=== PATIENT | male | born 1960 | race Caucasian/White ===

== ENCOUNTER 2018-08-29 07:15 | Day surgery (SDC) | payer BC ==
[~2018-08-29] VITALS: Ht 177.8 cm; Wt 98.0 kg
[~2018-08-29 07:15] MED LIST: BUPIVAC MPF-EPI 0.5%-1:200000 30 ML VIAL. ONE; HYDROmorphone 2 MG/ML VIAL IV PRN; IV RINGERS,LACTATED 1000ML 1,000 ML IV SCH; LIDOCAINE 1% PF 2 ML VIAL. ID PRN; ONDANSETRON PF 4 MG/2 ML VIAL. IV PRN; OXYC1TAB15 PO; PROCHLORPERAZINE 10 MG/2 ML VIAL. IV PRN; SIMV40TA3 PO; fentaNYL PF VIAL 100 MCG/2 ML VIAL IV PRN
[2018-08-29] MEDS ORDERED: ceFAZolin 2GM PREMIX 2 GM/50 ML BAG IV ONE (09:00)
[2018-08-29] MEDS ORDERED: MIDAZOLAM HCL/PF 2 MG/2 ML VIAL. ONE (09:02)
[2018-08-29] MEDS ORDERED: ROCURONIUM 50 MG/5 ML VIAL. ONE ×2 (09:02→10:27)
[2018-08-29] MEDS ORDERED: DEXAMETHASONE SOD PHOS 20 MG/5 ML VIAL. ONE (09:02)
[2018-08-29] MEDS ORDERED: PROPOFOL 20 ML IV ONE (09:02)
[2018-08-29] MEDS ORDERED: fentaNYL PF VIAL 100 MCG/2 ML VIAL ONE ×2 (09:02→10:27)
[2018-08-29] MEDS ORDERED: LIDOCAINE 2% PF Vial for OR 5 ML VIAL. ONE (09:02)
[2018-08-29] MEDS ORDERED: ONDANSETRON PF 4 MG/2 ML VIAL. ONE (09:02)
[2018-08-29] MEDS ORDERED: GLYCOPYRROLATE 1 MG/5 ML VIAL. ONE (10:15)
[2018-08-29] MEDS ORDERED: NEOSTIGMINE METHYLSULFATE 5 MG/5 ML SYRINGE. ONE (10:15)
[2018-08-29] MEDS ORDERED: SEVOFLURANE 61 TO 120 MINUTES. IH ONE (10:35)
--- NOTE | 2018-08-29 10:39 | PDOC4 ---
Operative Note Operative Note Date: 08/29/2018 Preoperative diagnosis: Recurrent left inguinal hernia and right inguinal hernia Postoperative diagnosis: Same Procedure: Robotic-assisted laparoscopic bilateral inguinal hernia repair with mesh Surgeon: Art Specimen: None Dictation: Patient is a 58-year-old male who had a left inguinal hernia repair 3 -1/2 years ago comes back with complaints of a left inguinal pain underwent a CT scan of the abdomen and pelvis which showed a recurrence of the left inguinal hernia and a new right inguinal hernia. The procedure of robotic- assisted laparoscopic bilateral inguinal hernia repairs with mesh was explained to the patient in detail risk benefits were also discussed including bleeding infection alternatives to this procedure also discussed with the patient who seemed to understand and gave both verbal and written consent to have the procedure performed. Patient was taken to the operating room placed in supine position general anesthesia was initiated once patient was asleep and intubated is placed in low lithotomy positioning and his abdomen was prepped and draped in the usual sterile fashion using ChloraPrep. An area just above the umbilicus was injected with quarter percent Marcaine with epinephrine incision was made in the blade scalpel and a Veress needle was placed within the abdomen creating pneumoperitoneum once this was complete and 8mm da Mau port was placed and a 30 da Mau camera was placed within the abdomen which was inspected. It was noted on the left inguinal area a fairly good sized hernia was much more lateral than the initial hernia is also a small hernia on the right side. At this time a 8mm da Mau port was placed in the left mid abdomen and one in the right mid abdomen all under direct visualization. The division robot was then brought in and docked all port sites surgeon went to the robotic console using a grasper and Endo Donald scissors the peritoneum over the left inguinal area was taken down was noted that there was mesh superior to the recurrent hernia once the hernia contents had been reduced and a medium 3-D Max Bard mesh for the left groin was placed within the abdomen this was placed over the hernia defect and the peritoneum was closed over the mesh with a running 20V lock suture. Tensions were then turned to the right side where the peritoneum was incised window propagated and the herniated contents reduced a medium 3-D Max Bard mesh for right groin was placed over the hernia defect and the peritoneum was closed over the mesh with 20V lock running suture. [place] were removed and the pneumoperitoneum was reduced all ports were removed the port sites were closed with 4 septic Monocryl Mastisol Steri-Strips and dressings were applied. Patient was awakened and asked waited in the operating room taken to recovery in stable condition all sponge instrument needle eyak status correct estimated blood loss 5 mL MIKEY VIRK MD Aug 29, 2018 10:39
--- NOTE | 2018-08-29 10:40 | DISCH ---
DISCHARGE INSTRUCTIONS Condition on Discharge Condition on Discharge: Stable Activity After Discharge Activity Instructions for Disc: Avoid exertion Other activity instructions: no lifting greater than 20 pounds for 2 weeks Diet after Discharge Diet after Discharge: Regular Wound Incision Care Other wound/incision instructi: May shower in 24 hours Contacting the [facility] after DC Call your doctor for: If your condition worsens Follow-Up Follow up with: Dr. Virk in 2 weeks MIKEY VIRK MD Aug 29, 2018 10:40
[2018-08-29] MEDS ORDERED: MORPHINE SULFATE 2 MG/ML VIAL. ONE (10:59)
[2018-08-29] MEDS ORDERED: OXYC1TAB15 PO (11:14)
[2018-08-29] MEDS: MORPHINE SULFATE 2 MG/ML VIAL. IV PRN ×2 (11:18→11:28)
[2018-08-29] MEDS ORDERED: oxyCODONE/APAP 5/325 1 TAB TABLET ONE (11:42)
[2018-08-29] MEDS ORDERED: oxyCODONE/APAP 5/325 1 TAB TABLET PO ONE (11:45)
[2018-08-29 14:50] VITALS: BP 128/76
== END 2018-08-29 14:50 | disposition home or self-care (01) ==
LOC: SURG 07:15
PROVIDERS: ATTEND Surgery
DX: K40.21 Bilateral inguinal hernia, without obstruction or gangrene, recurrent (principal); E78.00 Pure hypercholesterolemia, unspecified; Z98.890 Other specified postprocedural states; Z79.899 Other long term (current) drug therapy; Z88.8 Allergy status to other drugs, medicaments and biological substances
CPT/HCPCS: 49651; A7015; C1781; C1782; J0690; J1100; J2001; J2250; J2270; J2405; J2704; J2710; J3010; J3490; S2900